=== PATIENT | male | born 1985 | race Caucasian/White ===

== ENCOUNTER 2019-04-30 16:35 | Emergency (ER) | payer SELFPAY ==
--- NOTE | 2019-04-30 18:40 | EDPHYS ---
Physician Documentation [facility] Name: Wesley Leo Age: 33 yrs Sex: Male : 1985 Arrival Date: 04/30/2019 Time: 16:37 Bed 27 Private MD: ED Physician Luciano Delacruz HPI: 04/30 18:35 This 33 yrs old Male presents to ER via Ambulatory with complaints of facial cp infection. 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 History of cp trauma to area with metal plate placed in 2011. Patient reports drainage from wound for months and redness. Denies fever, headache, chills, sweats. Reports was told needed to have metal hardware removed in the past but has not followed up. Historical: - Allergies: 16:42 Sulfa (Sulfonamide Antibiotics); hb - Home Meds: 16:42 None [Active]; hb - PMHx: 16:42 None; hb - PSHx: 16:42 Face; hb - Immunization history:: Adult Immunizations up to date. - Social history:: Smoking status: Patient uses tobacco products, smokes one pack cigarettes per day. - Ebola Screening: : No symptoms or risks identified at this time. ROS: 18:35 Constitutional: Negative for body aches, chills, fever, poor PO intake. cp 18:35 Eyes: Negative for discharge, pain, redness, visual disturbance. cp 18:35 ENT: Negative for drainage from ear(s), ear pain, sore throat, difficulty swallowing, difficulty handling secretions. 18:35 Neck: Negative for pain with movement, pain at rest, stiffness. 18:35 Cardiovascular: Negative for chest pain. 18:35 Respiratory: Negative for cough, shortness of breath, wheezing. 18:35 Abdomen/GI: Negative for abdominal pain, nausea, vomiting, and diarrhea. 18:35 Skin: Positive for chronic open wound anterior aspect left facial cheek. 18:35 Neuro: Negative for altered mental status, dizziness, headache, weakness. 18:35 All other systems are negative. Exam: 18:35 Constitutional: The patient appears in no acute distress, alert, awake, non-toxic, well cp developed, well nourished. 18:35 Head/face: Noted is open wound anterior aspect left facial cheek with mild erythema, minimal swelling and scant drainage expressed. 18:35 Eyes: Periorbital structures: swelling, is not appreciated, Pupils: equal, round, and reactive to light and accomodation, Extraocular movements: intact throughout, Conjunctiva: normal, no exudate, no injection, Lids and lashes: appear normal, bilaterally. 18:35 ENT: External ear(s): are unremarkable, Nose: is normal, Mouth: Lips: moist, Oral mucosa: moist, abscess, is not appreciated, Posterior pharynx: Airway: no evidence of obstruction, patent. 18:35 Neck: ROM/movement: is normal, is supple, without pain, no range of motions limitations, no nuchal rigidity, Lymph nodes: no appreciated lymphadenopathy. 18:35 Chest/axilla: Inspection: normal. 18:35 Cardiovascular: Rate: normal. 18:35 Respiratory: the patient does not display signs of respiratory distress, Respirations: normal. 18:35 Neuro: Orientation: to person, place \T\ time. Mentation: is normal, Motor: moves all fours, strength is normal. Vital Signs: 16:42 BP 144 / 85; Pulse 83; Resp 16; Temp 98.3; Pulse Ox 100% on R/A; Weight 86.18 kg; hb Height 6 ft. 3 in. (190.50 cm); Pain 6/10; 18:15 BP 115 / 70 LA (auto/reg); Pulse 58; Temp 98.3; Pulse Ox 100% ; Pain 6/10; jp3 16:42 Body Mass Index 23.75 (86.18 kg, 190.50 cm) hb MDM: 18:27 Patient medically screened. cp 18:35 Differential diagnosis: abscess, cellulitis, sepsis, osteomyelitis. cp 18:39 Data reviewed: vital signs, nurses notes, and as a result, I will discharge patient. cp 18:39 Counseling: I had a detailed discussion with the patient and/or guardian regarding: the cp historical points, exam findings, and any diagnostic results supporting the discharge/admit diagnosis, the need for outpatient follow up, for definitive care, maxillary facial surgery, to return to the emergency department if symptoms worsen or persist or if there are any questions or concerns that arise at home. 04/30 18:36 Order name: Wound Culture cp Administered Medications: No medications were administered Disposition: 19:00 Chart complete. cp Disposition: 04/30/19 18:39 Discharged to Home. Impression: Open wound of head - left infraorbital area. - Condition is Stable. - Prescriptions for Clindamycin HCl 300 mg Oral Capsule - take 1 capsule by ORAL route every 6 hours for 10 days; 40 capsule. - Medication Reconciliation Form, Thank You Letter, Antibiotic Education, Prescription Opioid Use, Work release form form. - Follow up: Russ Bourgeois DDS; When: 1 week; Reason: Recheck today's complaints. - Problem is an ongoing problem. - Symptoms are unchanged. Addendum: 05/02/2019 19:02 Co-signature as Attending Physician, Luciano Delacruz MD. r n Signatures: Dispatcher [employer] EDMS Luciano Delacruz MD MD rn Hemant Montano PA PA cp uLcy Ayala, RN RN Paul Moeller RN RN rv Corrections: (The following items were deleted from the chart) 04/30 18:50 18:39 04/30/2019 18:39 Discharged to Home. Impression: Open wound of head - left rv infraorbital area. Condition is Stable. Forms are Medication Reconciliation Form, Thank You Letter, Antibiotic Education, Prescription Opioid Use. Follow up: Russ Bourgeois; When: 1 week; Reason: Recheck today's complaints. Problem is an ongoing problem. Symptoms are unchanged. cp
--- NOTE | 2019-04-30 18:40 | ER ---
Nurse's Notes [facility] Name: Wesley Leo Age: 33 yrs Sex: Male : 1985 Arrival Date: 04/30/2019 Time: 16:37 Bed 27 Private MD: Diagnosis: Open wound of head-left infraorbital area Presentation: 04/30 16:40 Presenting complaint: Patient states: "I have a metal plate in my cheek in 2011, my hb body is rejecting it, the infection has gotten really bad over the last few months.". 16:40 Method Of Arrival: Ambulatory hb 16:41 Transition of care: patient was not received from another setting of care. Onset of hb symptoms is unknown. 16:41 Acuity: SKYLAR 3 hb 16:41 Risk Assessment: Do you want to hurt yourself or someone else? Patient reports no hb desire to harm self or others. Initial Sepsis Screen: Does the patient meet any 2 criteria? No. Patient's initial sepsis screen is negative. Does the patient have a suspected source of infection? No. Patient's initial sepsis screen is negative. Care prior to arrival: None. Historical: - Allergies: 16:42 Sulfa (Sulfonamide Antibiotics); hb - Home Meds: 16:42 None [Active]; hb - PMHx: 16:42 None; hb - PSHx: 16:42 Face; hb - Immunization history:: Adult Immunizations up to date. - Social history:: Smoking status: Patient uses tobacco products, smokes one pack cigarettes per day. - Ebola Screening: : No symptoms or risks identified at this time. Screenin:49 Abuse screen: Denies threats or abuse. Denies injuries from another. Nutritional rv screening: No deficits noted. Tuberculosis screening: No symptoms or risk factors identified. Fall Risk None identified. Assessment: 18:48 General: Appears in no apparent distress. uncomfortable, Behavior is calm, cooperative. rv Pain: Complains of pain in left side of the face. Neuro: Level of Consciousness is awake, alert, obeys commands, Oriented to person, place, time, situation. Cardiovascular: Patient's skin is warm and dry. Respiratory: Airway is patent. GI: No signs and/or symptoms were reported involving the gastrointestinal system. : No signs and/or symptoms were reported regarding the genitourinary system. EENT: No signs and/or symptoms were reported regarding the EENT system. Derm: Skin is red, Wound noted face, left side Wound is post surgery. Musculoskeletal: No signs and/or symptoms reported regarding the musculoskeletal system. Vital Signs: 16:42 BP 144 / 85; Pulse 83; Resp 16; Temp 98.3; Pulse Ox 100% on R/A; Weight 86.18 kg; hb Height 6 ft. 3 in. (190.50 cm); Pain 6/10; 18:15 BP 115 / 70 LA (auto/reg); Pulse 58; Temp 98.3; Pulse Ox 100% ; Pain 6/10; jp3 16:42 Body Mass Index 23.75 (86.18 kg, 190.50 cm) hb ED Course: 16:37 Patient arrived in ED. mr 16:43 Arm band placed on right wrist. hb 17:03 Triage completed. hb 18:17 Bed in low position. Call light in reach. Side rails up X 1. Warm blanket given. Pillow jp3 given. Verbal reassurance given. Pulse ox on. NIBP on. 18:27 Hemant Montano PA is PHCP. cp 18:27 Luciano Delacruz MD is Attending Physician. cp 18:32 Paul Darling, LESLIE is Primary Nurse. rv 18:37 Russ Bourgeois DDS is Referral Physician. cp 18:49 No provider procedures requiring assistance completed. Patient did not have IV access rv during this emergency room visit. Administered Medications: No medications were administered Outcome: 18:39 Discharge ordered by MD. cp 18:50 Discharged to home ambulatory. rv 18:50 Condition: good 18:50 Discharge instructions given to patient, Instructed on discharge instructions, follow up and referral plans. medication usage, Demonstrated understanding of instructions, follow-up care, medications, Prescriptions given X 1. 18:50 Patient left the ED. rv Signatures: Jony Janet mr Hemant Montano PA PA Lucy Cotter, LESLIE RN Paul Darling, RN RN rv Guille Yang jp3
== END 2019-04-30 18:50 | disposition home or self-care (01) ==
LOC: ER 16:35
DX: S01.402A Unspecified open wound of left cheek and temporomandibular area, initial encounter (principal); F17.210 Nicotine dependence, cigarettes, uncomplicated; Z88.2 Allergy status to sulfonamides
CPT/HCPCS: 87070; 87205; 99283

== ENCOUNTER 2019-08-16 08:59 | Emergency (ER) | payer SELFPAY ==
[2019-08-16] MEDS ORDERED: FLUORESCEIN SODIUM 1 MG/WRAP ONE (09:09)
[2019-08-16] MEDS ORDERED: TETRACAINE HCL 0.5% 4ML OPTH ONE (09:09)
[2019-08-16] MEDS ORDERED: IBUPROFEN 400 MG TAB ONE (10:25)
[2019-08-16] MEDS ORDERED: GENTAMICIN 0.3% OPTH DROP 5ML ONE (10:25)
[2019-08-16] MEDS ORDERED: ACETAMINOPHEN 325 MG TABLET ONE (10:25)
--- NOTE | 2019-08-16 10:25 | ER ---
Nurse's Notes [facility] Name: Wesley Leo Age: 33 yrs Sex: Male : 1985 Arrival Date: 08/16/2019 Time: 08:58 Bed 20 Private MD: Diagnosis: Conjunctivitis-left eye Presentation: 08/16 08:59 Presenting complaint: EMS states: LEFT EYE PAIN/FB SENSATION SINCE WORK Y/D. Transition bp of care: patient was not received from another setting of care. Mechanism of Injury: UNKNOWN FB. The patient denies any loss of vision. Onset of symptoms is unknown. Risk Assessment: Do you want to hurt yourself or someone else? Patient reports no desire to harm self or others. Initial Sepsis Screen: Does the patient meet any 2 criteria? No. Patient's initial sepsis screen is negative. Does the patient have a suspected source of infection? No. Patient's initial sepsis screen is negative. Care prior to arrival: None. 08:59 Method Of Arrival: EMS: [facility] bp 08:59 Acuity: SKYLAR 3 bp Triage Assessment: 09:01 General: Appears in no apparent distress. uncomfortable, Behavior is cooperative, bp appropriate for age, anxious. Pain: Complains of pain in left eye. EENT: Reports pain in left eye. Neuro: No deficits noted. Cardiovascular: No deficits noted. Respiratory: No deficits noted. GI: No signs and/or symptoms were reported involving the gastrointestinal system. : No signs and/or symptoms were reported regarding the genitourinary system. Derm: No deficits noted. Musculoskeletal: No deficits noted. Historical: - Allergies: 09: Sulfa (Sulfonamide Antibiotics); bp - Home Meds: 09: None [Active]; bp - PMHx: 09: None; bp - PSHx: 09:01 FACIAL RECONSTRUCTION; bp - Immunization history:: Adult Immunizations up to date. - Social history:: Smoking status: Patient/guardian denies using tobacco. - Ebola Screening: : No symptoms or risks identified at this time. Screenin:01 Abuse screen: Denies threats or abuse. Nutritional screening: No deficits noted. tw2 Tuberculosis screening: No symptoms or risk factors identified. Fall Risk None identified. Assessment: 09:02 General: SEE TRIAGE NOTE. EENT: Eyes are tearing on left eye Sclera/Cornea are reddened bp in left eye. 10:01 Reassessment: Patient and/or family updated on plan of care and expected duration. Pain bp level reassessed. Patient is alert, oriented x 3, equal unlabored respirations, skin warm/dry/pink. 10:30 Reassessment: PT D/C HOME AMBULATORY, DX WITH CONJUNCTIVITIS. bp Vital Signs: 09:00 BP 120 / 63; Pulse 85; Resp 17; Temp 97.8(O); Pulse Ox 100% on R/A; Weight 90.72 kg tw2 (R); Height 6 ft. 3 in. (190.50 cm) (R); Pain 7/10; 10:01 BP 101 / 62; Pulse 88; Resp 18; Pulse Ox 100% ; bp 09:00 Body Mass Index 25.00 (90.72 kg, 190.50 cm) tw2 Visual Acuity: 09:40 Left Eye Visual acuity 20/50, ; Right Eye Visual acuity 20/20, ; Both Eyes Visual bp acuity 20/20; Without Lenses; ED Course: 08:58 Patient arrived in ED. bp 09:00 Triage completed. bp 09:01 Arm band placed on. tw2 09:04 Patient has correct armband on for positive identification. Bed in low position. Call bp light in reach. Side rails up X2. 09:13 Hemant Montano PA is PHCP. cp 09:13 Juancarlos Lemus MD is Attending Physician. cp 09:36 Elkin Duke, LESLIE is Primary Nurse. bp 10:12 Armando Torres MD is Referral Physician. cp 10:30 Assist provider with eye exam of left eye. using fluorescein stain, Performed by Hemant HANSON Dressed with eye patch Patient tolerated well. Patient did not have IV access during this emergency room visit. Administered Medications: 09:36 Drug: Tetracaine Drops 0.5 % 1 drops Route: Ophthalmic; Site: left eye; bp 10:15 Drug: Ibuprofen 800 mg Route: PO; bp 10:30 Follow up: Response: No adverse reaction bp 10:15 Drug: Tylenol 650 mg Route: PO; bp 10:30 Follow up: Response: No adverse reaction bp 10:15 Drug: Gentamicin Drops 0.3 % 1 drops Route: Ophthalmic; Site: left eye; bp Outcome: 10:12 Discharge ordered by . cp 10:31 Discharged to home ambulatory, with family. bp 10:31 Condition: stable 10:31 Discharge instructions given to patient, Instructed on discharge instructions, follow up and referral plans. medication usage, Demonstrated understanding of instructions, follow-up care, medications, Prescriptions given X 1. 10:31 Patient left the ED. bp Signatures: Hemant Montano PA PA cp Trixie Hastings RN RN tw2 Elkin Duke RN RN bp
--- NOTE | 2019-08-16 10:26 | EDPHYS ---
Physician Documentation [facility] Name: Wesley Leo Age: 33 yrs Sex: Male : 1985 Arrival Date: 08/16/2019 Time: 08:58 Bed 20 Private MD: ED Physician Juancarlos Lemus HPI: 08/16 09:35 This 33 yrs old Male presents to ER via EMS with complaints of Eye Pain. cp 09:35 The patient is experiencing foreign body sensation, pain, redness, to the left eye, cp caused by wood chips. Onset: The symptoms/episode began/occurred yesterday. Duration: the symptoms are continuous. Associated signs and symptoms: Pertinent negatives: fever, loss of vision. Patient does not utilize any form of vision correction. Severity of symptoms: in the emergency department the symptoms are unchanged despite home interventions. Historical: - Allergies: 09:01 Sulfa (Sulfonamide Antibiotics); bp - Home Meds: 09:01 None [Active]; bp - PMHx: 09:01 None; bp - PSHx: 09:01 FACIAL RECONSTRUCTION; bp - Immunization history:: Adult Immunizations up to date. - Social history:: Smoking status: Patient/guardian denies using tobacco. - Ebola Screening: : No symptoms or risks identified at this time. ROS: 09:45 Constitutional: Negative for body aches, chills, fever. cp 09:45 Eyes: Positive for foreign body sensation, pain, redness, of the left eye, Negative for cp discharge, matting, vision loss. 09:45 ENT: Negative for drainage from ear(s), ear pain, sore throat, difficulty swallowing, difficulty handling secretions. 09:45 Respiratory: Negative for cough, shortness of breath, wheezing. 09:45 Abdomen/GI: Negative for vomiting, diarrhea, constipation. 09:45 Skin: Negative for cellulitis, rash. 09:45 Neuro: Negative for dizziness, headache, weakness. 09:45 All other systems are negative. Exam: 09:45 Visual Acuity: I have reviewed the nursing documentation. cp 09:50 Constitutional: The patient appears in no acute distress, alert, awake, non-toxic, well cp developed, well nourished, uncomfortable. 09:50 Head/Face: Normocephalic, atraumatic. cp 09:50 Eyes: Periorbital structures: appear normal, no erythema, no swelling, Pupils: equal, round, and reactive to light and accomodation, Extraocular movements: intact throughout, Conjunctiva: injected, Corneas: abrasion, is not appreciated, foreign body, is not appreciated, a fluorescein strip employed to appreciate the findings, Lids and lashes: appear normal, bilaterally. 09:50 ENT: External ear(s): are unremarkable, no acute changes, Ear canal(s): are normal, clear, TM's: bulging, is not appreciated, bilaterally, dullness, bilaterally, erythema, is not appreciated, bilaterally. 09:50 Neck: ROM/movement: is normal, is supple, without pain, no range of motions limitations, no nuchal rigidity. 09:50 Chest/axilla: Inspection: normal, Palpation: is normal, no crepitus, no tenderness. 09:50 Cardiovascular: Rate: normal, Rhythm: regular. 09:50 Respiratory: the patient does not display signs of respiratory distress, Respirations: normal, no use of accessory muscles, Breath sounds: are clear throughout, no decreased breath sounds, no stridor, no wheezing. 09:50 Abdomen/GI: Exam negative for discomfort, distension, guarding, Inspection: abdomen appears normal. 09:50 Skin: cellulitis, is not appreciated, no rash present. Vital Signs: 09:00 BP 120 / 63; Pulse 85; Resp 17; Temp 97.8(O); Pulse Ox 100% on R/A; Weight 90.72 kg tw2 (R); Height 6 ft. 3 in. (190.50 cm) (R); Pain 7/10; 10:01 BP 101 / 62; Pulse 88; Resp 18; Pulse Ox 100% ; bp 09:00 Body Mass Index 25.00 (90.72 kg, 190.50 cm) tw2 Visual Acuity: 09:40 Left Eye Visual acuity 20/50, ; Right Eye Visual acuity 20/20, ; Both Eyes Visual bp acuity 20/20; Without Lenses; MDM: 10:00 Differential diagnosis: Corneal abrasion of Corneal ulcer of Foreign body in Infectious cp conjunctivitis in left eye. 10:11 Data reviewed: vital signs, nurses notes, and as a result, I will discharge patient. cp 10:11 Counseling: I had a detailed discussion with the patient and/or guardian regarding: the cp historical points, exam findings, and any diagnostic results supporting the discharge/admit diagnosis, the need for outpatient follow up, a family practitioner, to return to the emergency department if symptoms worsen or persist or if there are any questions or concerns that arise at home. Response to treatment: the patient's symptoms have mildly improved after treatment, and as a result, I will discharge patient. 10:12 Patient medically screened. cp 08/16 09:35 Order name: Visual Acuity; Complete Time: :40 cp 08/16 09:35 Order name: Eye Tray; Complete Time: :36 cp 08/16 09:35 Order name: Fluoresene Opth strip; Complete Time: :36 cp Administered Medications: 09:36 Drug: Tetracaine Drops 0.5 % 1 drops Route: Ophthalmic; Site: left eye; bp 10:15 Drug: Ibuprofen 800 mg Route: PO; bp 10:30 Follow up: Response: No adverse reaction bp 10:15 Drug: Tylenol 650 mg Route: PO; bp 10:30 Follow up: Response: No adverse reaction bp 10:15 Drug: Gentamicin Drops 0.3 % 1 drops Route: Ophthalmic; Site: left eye; bp Disposition: 08/17 08:52 Co-signature as Attending Physician, Juancarlos Lemus MD I agree with the assessment and kdr plan of care. Disposition: 08/16/19 10:12 Discharged to Home. Impression: Conjunctivitis - left eye. - Condition is Stable. - Prescriptions for Gentamicin 0.3 % Ophthalmic Drops - instill 1 drop by OPHTHALMIC route every 4 hours for 7 days; 1 bottle. - Medication Reconciliation Form, Thank You Letter, Antibiotic Education, Prescription Opioid Use form. - Follow up: Armando Torres MD; When: 1 - 2 days; Reason: Recheck today's complaints. - Problem is new. - Symptoms have improved. Signatures: Juancarlos Lemus MD MD kdr Hemant Montano PA PA cp Elkin Duke RN RN bp Corrections: (The following items were deleted from the chart) 08/16 10:31 10:12 08/16/2019 10:12 Discharged to Home. Impression: Conjunctivitis - left eye. bp Condition is Stable. Forms are Medication Reconciliation Form, Thank You Letter, Antibiotic Education, Prescription Opioid Use. Follow up: Armando Torres; When: 1 - 2 days; Reason: Recheck today's complaints. Problem is new. Symptoms have improved. cp
[2019-08-16 10:40] VITALS: TEMP 97.8; O2SAT 100
[2019-08-16 10:42] VITALS: BP 101/62
== END 2019-08-16 10:31 | disposition home or self-care (01) ==
LOC: ER 08:59
DX: H10.9 Unspecified conjunctivitis (principal); Z88.2 Allergy status to sulfonamides
CPT/HCPCS: 99284

== ENCOUNTER 2019-09-01 10:32 | Emergency (ER) | payer SELFPAY ==
[2019-09-01] MEDS ORDERED: CODEINE 30MG/APAP 300MG TAB ONE (11:06)
--- NOTE | 2019-09-01 11:42 | RAD REPORT ---
EXAM DESCRIPTION: RAD - Hand Left 3 View - 09/01/2019 11:22 am CLINICAL HISTORY: Left hand pain, blunt force trauma COMPARISON: None. FINDINGS: No fracture, dislocation or periosteal reaction noted. Degenerative changes are present at the fourth MCP joint. There is joint space narrowing and marginal spurring. There is flattening or r emodeling of the head of the fourth metacarpal. Soft tissue swelling is present over the dorsum of the hand. No air or foreign body. IMPRESSION: Left hand soft tissue swelling without foreign body. No fracture or acute bone process.
--- NOTE | 2019-09-01 11:57 | EDPHYS ---
Physician Documentation [facility] Name: Wesley Leo Age: 33 yrs Sex: Male : 1985 Arrival Date: 09/01/2019 Time: 10:34 Bed 12 Private MD: ED Physician Tim Payne HPI: 09/01 11:16 This 33 yrs old Male presents to ER via Ambulatory with complaints of Hand pm1 Injury. 11:16 The patient or guardian reports pain, swelling. The complaints affect the left hand. pm1 Context: The problem was sustained at work, resulted from a crush injury, between two dollies. Onset: The symptoms/episode began/occurred yesterday. Modifying factors: The symptoms are alleviated by ice/coldpack to affected area, the symptoms are aggravated by movement. Associated signs and symptoms: The patient has no apparent associated signs or symptoms, Pertinent negatives: cyanosis distally, decreased sensation distally, numbness distally, tingling distally. Severity of symptoms: in the emergency department the symptoms have improved. The patient has not experienced similar symptoms in the past. The patient has not recently seen a physician. Historical: - Allergies: 10:51 Sulfa (Sulfonamide Antibiotics); hb - Home Meds: 10:51 None [Active]; hb - PMHx: 10:51 None; hb - PSHx: 10:51 FACIAL RECONSTRUCTION; Hand - Left; Hip - Left; hb - Immunization history:: Adult Immunizations up to date. - Social history:: Smoking status: Patient uses tobacco products, smokes one pack cigarettes per day. - Ebola Screening: : No symptoms or risks identified at this time. ROS: 11:16 Constitutional: Negative for fever, chills, and weight loss, Cardiovascular: Negative pm1 for chest pain, palpitations, and edema, Respiratory: Negative for shortness of breath, cough, wheezing, and pleuritic chest pain, Back: Negative for injury and pain. 11:16 MS/extremity: Positive for pain, swelling, of the left hand. 11:16 All other systems are negative. Exam: 11:16 Constitutional: This is a well developed, well nourished patient who is awake, alert, pm1 and in no acute distress. Chest/axilla: Normal chest wall appearance and motion. Nontender with no deformity. No lesions are appreciated. Cardiovascular: Regular rate and rhythm with a normal S1 and S2. No gallops, murmurs, or rubs. Normal PMI, no JVD. No pulse deficits. Respiratory: Lungs have equal breath sounds bilaterally, clear to auscultation and percussion. No rales, rhonchi or wheezes noted. No increased work of breathing, no retractions or nasal flaring. Skin: Warm, dry with normal turgor. Normal color with no rashes, no lesions, and no evidence of cellulitis. 11:16 Musculoskeletal/extremity: Extremities: grossly normal except: noted in the dorsum of left hand over distal 2nd and 3rd metacarpals: tenderness, ROM: intact in all extremities, Circulation is intact in all extremities. 11:16 Neuro: Orientation: is normal, Motor: is normal, moves all fours. Vital Signs: 10:51 BP 127 / 78; Pulse 88; Resp 16; Temp 97; Pulse Ox 100% ; Weight 92.99 kg; Height 6 ft. hb 3 in. (190.50 cm); Pain 8/10; 10:51 Body Mass Index 25.62 (92.99 kg, 190.50 cm) hb MDM: 10:44 Patient medically screened. pm1 11:55 Data reviewed: vital signs. Data interpreted: Pulse oximetry: on room air is 100 %. pm1 Interpretation: normal. Counseling: I had a detailed discussion with the patient and/or guardian regarding: the historical points, exam findings, and any diagnostic results supporting the discharge/admit diagnosis, radiology results, the need for outpatient follow up, to return to the emergency department if symptoms worsen or persist or if there are any questions or concerns that arise at home. 09/01 10:55 Order name: Hand Left 3 View XRAY; Complete Time: 11:55 pm1 Administered Medications: 11:16 Drug: Tylenol #3 (300 mg-30 mg) 2 tabs Route: PO; iw Disposition: 09/01/19 11:56 Discharged to Home. Impression: Contusion of left hand. - Condition is Stable. - Discharge Instructions: Hand Contusion. - Prescriptions for Tylenol- Codeine #3 300-30 mg Oral Tablet - take 2 tablets by ORAL route every 6 hours As needed; 12 tablet. - Work release form, Medication Reconciliation Form, Thank You Letter, Antibiotic Education, Prescription Opioid Use form. - Follow up: Emergency Department; When: As needed; Reason: Worsening of condition. Follow up: Private Physician; When: 2 - 3 days; Reason: Recheck today's complaints, Continuance of care, Re-evaluation by your physician. - Problem is new. - Symptoms have improved. Addendum: 09/03/2019 04:48 Co-signature as Attending Physician, Tim Payne MD. g s Signatures: Dispatcher [employer] EDLida Fletcher RN RN iw Miles Day, ADVERTISING VICE PRESIDENT ADVERTISING VICE PRESIDENT pm1 Lucy Ayala RN RN Tim Payne MD MD Corrections: (The following items were deleted from the chart) 09/01 12:13 11:56 09/01/2019 11:56 Discharged to Home. Impression: Contusion of left hand. iw Condition is Stable. Forms are Medication Reconciliation Form, Thank You Letter, Antibiotic Education, Prescription Opioid Use. Follow up: Emergency Department; When: As needed; Reason: Worsening of condition. Follow up: Private Physician; When: 2 - 3 days; Reason: Recheck today's complaints, Continuance of care, Re-evaluation by your physician. Problem is new. Symptoms have improved. pm1
--- NOTE | 2019-09-01 11:57 | ER ---
Nurse's Notes [facility] Name: Wesley Leo Age: 33 yrs Sex: Male : 1985 Arrival Date: 09/01/2019 Time: 10:34 Bed 12 Private MD: Diagnosis: Contusion of left hand Presentation: 09/01 10:48 Presenting complaint: Left hand caught between 2 heavy dollies while moving safe hb yesterday, c/o left hand pain and swelling 07/01. Transition of care: patient was not received from another setting of care. Onset of symptoms was August 31, 2019. Risk Assessment: Do you want to hurt yourself or someone else? Patient reports no desire to harm self or others. Initial Sepsis Screen: Does the patient meet any 2 criteria? No. Patient's initial sepsis screen is negative. Does the patient have a suspected source of infection? No. Patient's initial sepsis screen is negative. Care prior to arrival: None. 10:48 Method Of Arrival: Ambulatory hb 10:48 Acuity: SKYLAR 4 hb Triage Assessment: 10:50 General: Appears in no apparent distress. Behavior is calm, cooperative. Pain: Pain hb currently is 8 out of 10 on a pain scale. Neuro: Level of Consciousness is awake, alert, obeys commands, Oriented to person, place, time, situation. Cardiovascular: Capillary refill < 3 seconds Patient's skin is warm and dry. Respiratory: Airway is patent Respiratory effort is even, unlabored, Respiratory pattern is regular, symmetrical. Musculoskeletal: Capillary refill < 3 seconds, Swelling present in left hand Reports left hand pain and swelling. Historical: - Allergies: 10:51 Sulfa (Sulfonamide Antibiotics); hb - Home Meds: 10:51 None [Active]; hb - PMHx: 10:51 None; hb - PSHx: 10:51 FACIAL RECONSTRUCTION; Hand - Left; Hip - Left; hb - Immunization history:: Adult Immunizations up to date. - Social history:: Smoking status: Patient uses tobacco products, smokes one pack cigarettes per day. - Ebola Screening: : No symptoms or risks identified at this time. Screenin:01 Abuse screen: Denies threats or abuse. Denies injuries from another. Nutritional hb screening: No deficits noted. Tuberculosis screening: No symptoms or risk factors identified. Fall Risk None identified. Assessment: 11:01 General: see triage assessment. hb Vital Signs: 10:51 BP 127 / 78; Pulse 88; Resp 16; Temp 97; Pulse Ox 100% ; Weight 92.99 kg; Height 6 ft. hb 3 in. (190.50 cm); Pain 8/10; 10:51 Body Mass Index 25.62 (92.99 kg, 190.50 cm) hb ED Course: 10:34 Patient arrived in ED. rg4 10:43 Miles Day NP is PHCP. pm1 10:43 Tim Payne MD is Attending Physician. pm1 10:48 Lucy Ayala, RN is Primary Nurse. hb 10:49 Triage completed. hb 10:51 Arm band placed on. hb 11:01 Patient has correct armband on for positive identification. hb 11:01 No provider procedures requiring assistance completed. Patient did not have IV access hb during this emergency room visit. 11:05 Hand Left 3 View XRAY Sent. hb 11:22 Hand Left 3 View XRAY In Process Unspecified. EDMS Administered Medications: 11:16 Drug: Tylenol #3 (300 mg-30 mg) 2 tabs Route: PO; iw Outcome: 11:56 Discharge ordered by . pm1 12:13 Patient left the ED. iw Signatures: Dispatcher [employer] EDMS Lida Matute RN RN iw Miles Day NP COLOR CONTROL SUPERVISOR pm1 Lucy Ayala, LESLIE RN Dori Ferrell [id number]
[2019-09-01 12:18] VITALS: BP 127/78; TEMP 97; O2SAT 100
== END 2019-09-01 12:13 | disposition home or self-care (01) ==
LOC: ER 10:32
DX: S60.222A Contusion of left hand, initial encounter (principal); W23.0XXA Caught, crushed, jammed, or pinched between moving objects, initial encounter; Y93.9 Activity, unspecified; Y92.89 Other specified places as the place of occurrence of the external cause; Y99.8 Other external cause status; Z88.2 Allergy status to sulfonamides; F17.210 Nicotine dependence, cigarettes, uncomplicated
CPT/HCPCS: 99283